=== PATIENT | female | born 2000 | race Caucasian/White ===

== ENCOUNTER 2024-09-06 11:41 | Emergency (ER) | payer BC, SELFPAY ==
--- NOTE | ~2024-09-06 | CT_ITS ---
EXAMINATION: CT brain wo con DATE: 09/06/2024 13:17 INDICATION: Headache post head injury TECHNIQUE: Computed tomography (CT) of the head was performed without intravenous contrast. Sagittal and coronal reconstructions were performed. The mA was adjusted according to patient size. Iterative reconstruction technique was employed. The dose-length product was 605.33 mGy-cm. COMPARISON: None FINDINGS: No fracture. No acute intracranial hemorrhage, acute infarction or abnormal extra axial fluid collect ion. Ventricles are normal and symmetric. No mass/mass effect. The orbits, paranasal sinuses and mast oid air cells are normal. IMPRESSION: 1. Normal head CT. No fracture or acute intracranial process. Reviewed, dictated and finalized at location A.
[2024-09-06 11:49] VITALS: BP 130/91; PULSE 87; RESP 16; TEMP 36.8; O2SAT 100
[2024-09-06] MEDS: SODIUM CHLORIDE 0.9% IV 500 ML 50 ML IV CONT (12:54)
[2024-09-06] MEDS: ONDANSETRON INJ 4 MG/2 ML VIAL IV PUSH (12:54)
[2024-09-06] MEDS: KETOROLAC 30 MG/ML VIAL (*BKC) IV PUSH (12:55)
--- NOTE | 2024-09-06 13:40 | ED.HA ---
HPI - Headache General Chief Complaint: Headache Stated Complaint: migraine x3 days Time Seen by Provider: 09/06/24 12:11 Source: patient Mode of arrival: ambulatory Limitations: no limitations History of Present Illness HPI Narrative: [age] year having headache for last 3 days. Patient states to he had alcohol on the weekend and was intoxicated and fell. She ever since then she been having headache. She denies any nausea or vomiting. Has occasional blurry vision MD elicited complaint: headache Pertinent past history: recent trauma Onset (ago): day(s) (3) Location: frontal Severity: moderate Quality & Timing: aching Exacerbating factors: none Relieving factors: nothing Related Data Allergies Allergy/AdvReac Type Severity Reaction Status Date / Time No Known Allergies Allergy Verified 09/06/24 11:43 Review of Systems Review of Systems: All systems reviewed & are unremarkable except as noted in HPI and below Constitutional: Constitutional: Reports no additional constitutional complaints Eyes: Eyes: Reports as per HPI ENT: Reports system reviewed and no additional complaints, except as documented Cardiovascular: Cardiovascular: Reports no additional cardiovascular complaints Respiratory: Respiratory: Reports no additional respiratory complaints Gastrointestinal: Gastrointestinal: Reports no additional gastrointestinal complaints Musculoskeletal: Musculoskeletal: Reports no additional musculoskeletal complaints Exam Narrative: GENERAL: Well-appearing, well-nourished, and in no acute distress. HEAD: Normocephalic, atraumatic. EYES: PERRLA and EOMI. ENT: Nares clear, no rhinorrhea or epistaxis. Mucous membranes moist. NECK: Supple. CHEST: Clear to auscultation. No respiratory distress. HEART: Regular rate and rhythm. No murmur heard. Normal peripheral pulses. ABDOMEN: Soft, nontender, nondistended, normal active bowel sounds. EXTREMITIES: Normal range of motion. No edema. SKIN: Warm, dry, no rash. NEURO: No focal deficits. Alert and oriented x3. PSYCH: Normal mood and affect. Course Course Emergency Course: Patient was given IV normal headache improved CT scan was performed which was negative the feels much better. Advised her to take Tylenol as needed for pain, rest. Vital Signs Vital signs: Vital Signs Temperature 36.8 C 09/06/24 11:49 Pulse Rate 87 09/06/24 11:49 Respiratory Rate 16 09/06/24 11:49 Blood Pressure 130/91 H 09/06/24 11:49 Pulse Oximetry 100 09/06/24 11:49 Oxygen Delivery Room Air 09/06/24 11:49 Temperature 36.8 C 09/06/24 11:49 Pulse Rate 87 09/06/24 11:49 Respiratory Rate 16 09/06/24 11:49 Blood Pressure 130/91 H 09/06/24 11:49 Pulse Oximetry 100 09/06/24 11:49 Oxygen Delivery Room Air 09/06/24 11:49 MDM - Headache Differential Diagnosis Differential diagnosis: Likely subarachnoid hemorrhage, headache, postconcussion syndrome and other (Alcohol withdrawal) Medical Records Attestation: I reviewed the patient's medical records. Imaging Data Radiologist's impression: ITS Impressions Head CT 09/06/24 13:18 IMPRESSION: 1. Normal head CT. No fracture or acute intracranial process. Discharge Plan Discharge Clinical Impression: Headache Qualifiers: Headache type: unspecified Headache chronicity pattern: acute headache Intractability: intractable Qualified Code(s): R51.9 - Headache, unspecified Patient Disposition: Home Condition: Stable Instructions: Head Injury (ED) Additional Instructions: Being more fluids, rest, take Tylenol for headache as needed. Patient Language: [place] Follow-up/Referrals: Patric Flores MD [Physician] - UNKNOWN,DOCTOR [Primary Care Provider] - Time of Disposition: 13:46
--- NOTE | 2024-09-06 13:49 | PC.NURSE ---
EDP gave verbal order for 500mL saline bag to be given wide open
[2024-09-06 14:10] VITALS: BP 101/70; PULSE 65; RESP 15; TEMP 36.7; O2SAT 100
== END 2024-09-06 13:54 | disposition home or self-care (01) ==
PROVIDERS: Emergency Provider Family Medicine
DX: R51.9 Headache, unspecified (principal); W17.89XA Other fall from one level to another, initial encounter
CPT/HCPCS: 70450; 96361; 96374; 96375; 99284; J1885; J2405; J7040